=== PATIENT | male | born 1970 ===

== ENCOUNTER 2019-02-11 11:21 | Emergency (ER) | payer MEDICARE ==
--- NOTE | 2019-02-11 11:33 | Event Note ---
ED Screening Note ED Screening Note: pt is here for SI states that he would harm himself with razors states he had a overdose due to SI in 1993 PMHx seizures-depakote, bipolar, schizophrenia has not taken any medicine in a week no HI no hallucination police were called and he had razors +smoker +ETOH +cocaine -last used last night This initial assessment/diagnostic orders/clinical plan/treatment(s) is/are subject to change based on patients health status, clinical progression and re- assessment by fellow clinical providers in the ED. Further treatment and workup at subsequent clinical providers discretion. Patient/guardian urged not to elope from the ED as their condition may be serious if not clinically assessed and managed. Initial orders include: mental health clearance protocol
[2019-02-11 12:32] LABS: Bilirubin,Urine NEG (Negative); Blood,Urine NEG (Negative); Color,Urine Yellow (Yellow); Mucus,Urine 2+ /HPF; Protein,Urine <15 mg/dL mg/dL (Negative); WBC,Urine < 1.0 /HPF (0.0-6.0)
[2019-02-11 12:35] LABS: Amphetamine Screen,Urine PRESUMPTIVE NEGATIVE; Benzodiazepines Screen,Urine PRESUMPTIVE NEGATIVE; Cannabinoid Screen,Urine PRESUMPTIVE NEGATIVE; Methadone Screen,Urine PRESUMPTIVE NEGATIVE; Opiate Screen,Urine PRESUMPTIVE NEGATIVE
[2019-02-11 12:49] LABS: Cocaine Screen,Urine PRESUMPTIVE POSITIVE
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
[2019-02-11 13:22] LABS: Basophils % (Auto) 0.5 % (0.0-1.8); Eosinophils # (Auto) 0.1 K/mm3 (0.0-0.4); Eosinophils % (Auto) 1.5 % (0.0-4.3); Hematocrit 46.4 % (35.5-45.6); Hemoglobin 15.8 gm/dl (11.8-15.2); Lymphocytes # (Auto) 2.4 K/mm3 (1.2-5.4); Lymphocytes % (Auto) 24.3 % (13.4-35.0); Mean Corpuscular HGB Conc 34 % (32-34); Mean Corpuscular Volume 90 fl (84-94); Monocytes # (Auto) 0.8 K/mm3 (0.0-0.8); Monocytes % (Auto) 8.3 % (0.0-7.3); Platelet Count 219 K/mm3 (140-440); Red Blood Count 5.14 M/mm3 (3.65-5.03); Red Cell Distribution Width 13.7 % (13.2-15.2)
[2019-02-11 14:18] LABS: Alanine Aminotransferase 20 units/L (7-56); Albumin 4.3 g/dL (3.9-5); BUN/Creatinine Ratio 18; Blood Urea Nitrogen 18 mg/dL (9-20); Calcium 9.4 mg/dL (8.4-10.2); Hemolysis Index 15
[2019-02-12 10:04] LABS: Alanine Aminotransferase 17 units/L (7-56)
[2019-02-12 10:27] VITALS: BP 134/92
--- NOTE | 2019-02-12 13:16 | Consultation ---
History of Present Illness - Reason for Consult Consult date: 02/12/19 Reason for consult: Mental Health Evaluation Requesting physician: JUSTIN BONILLA - Chief Complaint Chief complaint: 'I want to kill myself" - History of Present Psychiatric Illness 48 y.o. AA male who presented to the ER for SI's. This patient is known to me. Today the patient was calm during the assessment. He stated that he got into an argument with his girlfriend and became "depressed." He stated that he self medicated with cocaine to "ease" his depression. He stated that he attempted to cut his left wrist (no new cuts on his left wrist when examined). He stated that he is stressed out over his life and his living situation. He rate his depression 7/10, with 10 being the worse. He would not confirm or deny a previous suicide attempt, He denies HI's and AVH's. He denies a poor appetite and erratic sleep. He denies alcohol consumption (etoh). Medications and Allergies Allergies Allergy/AdvReac Type Severity Reaction Status Date / Time No Known Allergies Allergy Verified 07/27/18 06:49 Home Medications Medication Instructions Recorded Confirmed Last Taken Type Divalproex Dr [Depakote Dr] 500 mg PO BID 07/27/18 02/11/19 Unknown History QUEtiapine [SEROquel] 200 mg PO QHS 07/27/18 02/11/19 Unknown History Active Meds: Active Medications Divalproex Sodium (Depakote Dr) 500 mg PO BID TAINA Last Admin: 02/12/19 11:00 Dose: 500 mg Documented by: Past psychiatric history - Past Medical History Past Medical History: No medical history Past Surgical History: No surgical history - past Psychiatric treatment and history psychiatric treatment history: inpatient psy services in the past. Denies a fam psy hx. - Social History Social history: lives with family Mental Status Exam - Vital signs Last Vital Signs Temp 97.9 F 02/12/19 10:26 Pulse 74 02/12/19 10:26 Resp 18 02/12/19 10:26 BP 134/92 02/12/19 10:26 Pulse Ox 99 02/12/19 10:26 - Exam Narrative exam: MSE: Appearance: calm, cooperative Behavior: regular eye contact Speech: regular rate and tone Mood: "depressed" Affect: flat Thought Process: circumstantial Thought Content: denies HI's and AVH's Motor Activity: lying in bed Cognition: A/O x 3 Insight: variable Judgment: poor Results Result Diagrams: 02/11/19 13:01 02/11/19 13:01 Abnormal lab results 02/11/19 02/11/19 02/11/19 Range/Units 13:00 13:00 13:01 RBC 5.14 H (3.65-5.03) M/mm3 Hgb 15.8 H (11.8-15.2) gm/dl Hct 46.4 H (35.5-45.6) % [place] % (Auto) 8.3 H (0.0-7.3) % Glucose (75-100) mg/dL Total Creatine Kinase (55-170) units/L Lipase (13-60) units/L Salicylates < 0.3 L (2.8-20.0) mg/dL Acetaminophen < 5.0 L (10.0-30.0) ug/mL Valproic Acid < 2.8 L (50-100) ug/mL 02/11/19 02/11/19 02/12/19 Range/Units 13:01 13:08 09:22 RBC (3.65-5.03) M/mm3 Hgb (11.8-15.2) gm/dl Hct (35.5-45.6) % [place] % (Auto) (0.0-7.3) % Glucose 112 H (75-100) mg/dL Total Creatine Kinase 652 H (55-170) units/L Lipase 12 L (13-60) units/L Salicylates (2.8-20.0) mg/dL Acetaminophen (10.0-30.0) ug/mL Valproic Acid (50-100) ug/mL All other labs normal. Assessment and Plan Assessment and plan: Impression: MDD, severe type. Substance Use DO (cocaine). Today the patient was calm during the assessment. The patient endorsed Si's. DDx: R/O Bipolar DO, Substance Induced Mood DO Recommendation/Plan: Continue 1013. Dispo: The patient was accepted at [facility] for inpatient psy services. Will staff with Dr Austen Byrnes.
== END 2019-02-12 13:49 ==
LOC: ED 11:21 → EEVIPCON 11:21 → ED 02-12 13:49
DX: F31.9 Bipolar disorder, unspecified (principal); F14.10 Cocaine abuse, uncomplicated; F12.10 Cannabis abuse, uncomplicated; F20.9 Schizophrenia, unspecified; Z91.14 Patient's other noncompliance with medication regimen
CPT/HCPCS: 36415; 80053; 80164; 80307; 81001; 82150; 82550; 83690; 83735; 84075; 84450; 84460; 85025; 99285; G0480; 80320